=== PATIENT | female | born 1985 | race Caucasian/White ===

== ENCOUNTER → 2016-08-16 | Outpatient (CLI) | payer OTHER ==
[~2016-08-16] MED LIST: ALBUTEROL INHALATION; DESONIDECR TOPICAL; FLONASESPR NASAL; ORTHOTRICY PO; SINGULAI10 PO
[2016-08-16 13:13] LABS: BASO # 0.1 K/mm3 (0.0-0.2); BASO % 0.6 % (0.0-1.0); EOS # 0.4 K/mm3 (0.0-0.50); LYMPH # 2.2 K/mm3 (1.5-6.5); LYMPH % 24.3 % (24.0-44.0); MEAN CORPUSCULAR HEMOGLOBIN 31.7 pg (27.0-33.0); MEAN CORPUSCULAR HGB CONC 35.7 g/dl (32.0-36.5); MEAN CORPUSCULAR VOLUME 88.6 fl (80.0-96.0); MONO # 0.4 K/mm3 (0.0-0.8); MONO % 3.8 % (0.0-5.0); NEUTROPHILS # 6.1 K/mm3 (1.8-7.7); RED CELL DISTRIBUTION WIDTH 12.8 % (11.5-14.5); WHITE BLOOD COUNT 9.2 K/mm3 (4.0-10.0)
[2016-08-16 14:20] LABS: ALBUMIN/GLOBULIN RATIO 1.18 (1.00-1.93); ALKALINE PHOSPHATASE 112 U/L (45-117); ALT/SGPT 57 U/L (12-78); ANION GAP 10 MEQ/L (8-16); AST/SGOT 26 U/L (15-37); BILIRUBIN,TOTAL 0.4 MG/DL (0.2-1.0); BLOOD UREA NITROGEN 13 MG/DL (7-18); CALCIUM LEVEL 8.6 MG/DL (8.5-10.1); CARBON DIOXIDE LEVEL 24 MEQ/L (21-32); CHLORIDE LEVEL 109 MEQ/L (98-107); CHOLESTEROL LEVEL 223 MG/DL (<200); CREATININE FOR GFR 0.85 MG/DL (0.55-1.02); FREE T4 0.91 NG/DL (0.76-1.46); GLOMERULAR FILTRATION RATE > 60.0 (>60); GLUCOSE, FASTING 116 MG/DL (70-105); POTASSIUM SERUM 4.1 MEQ/L (3.5-5.1); SODIUM LEVEL 143 MEQ/L (136-145); TOTAL PROTEIN 7.4 GM/DL (6.4-8.2); TRIGLYCERIDES LEVEL 212 MG/DL (<150)
--- NOTE | 2016-08-17 14:56 | ECGEPIP ---
Stationary ECG Study [facility] Test Date: 2016-08-16 Pat Name: JULES MEJIA Department: OP Room: - Gender: F Radio Engineer: : 1985 Requested By: Jannie Pereira Order Number: [id number] Reading MD: David Juarez Measurements Intervals [place] Rate: 84 P: 30 CT: 137 QRS: 18 QRSD: 87 T: 29 QT: 373 QTc: 442 Interpretive Statements SINUS RHYTHM NONSPECIFIC T-WAVE ABNORMALITY NO PRIOR Electronically Signed On 08-17-2016 14:56:46 EST by David Juarez
== END ==
LOC: M LAB 12:29
PROVIDERS: ATTEND Nurse Practitioner Adult Health
DX: R07.9 Chest pain, unspecified (principal); E78.1 Pure hyperglyceridemia; E55.9 Vitamin D deficiency, unspecified; Z79.899 Other long term (current) drug therapy; J45.998 Other asthma; J44.9 Chronic obstructive pulmonary disease, unspecified

== ENCOUNTER → 2016-08-20 | Outpatient (CLI) | payer OTHER | LOC: M CARPUL 11:00 | PROVIDERS: ATTEND Nurse Practitioner Adult Health | DX: J44.9 Chronic obstructive pulmonary disease, unspecified (principal); R07.9 Chest pain, unspecified; J45.998 Other asthma ==

== ENCOUNTER → 2016-12-05 | Outpatient (CLI) | payer OTHER ==
[~2016-12-05] MED LIST changes: +GASTROGRAFIN SOLUTION 30ML (Q9963) As Ordered ONE; +ISOVUE-370 76% 100ML VIAL (Q9967) As Ordered ONE
--- NOTE | 2016-12-06 03:35 | REP ---
Clinical: Hiatal hernia. Abdominal pain. Technique: Axial contrast enhanced images of the abdomen using oral and 100 ml Isovue 370 intravenous contrast material with coronal and sagittal re-formations. Findings: A moderate hiatal hernia is identified with the gastric cardia and fundus extending superiorly through the esophageal hiatus by approximately 6 cm on current supine CT evaluation during non-Valsalva breath-hold. The remainder of the of the stomach and enteric system are normal. A normal terminal ileum and appendix are identified in the visualized right lower quadrant. Liver, spleen, pancreas, gallbladder, bilateral adrenal glands and kidneys are normal. No ascites. No free air. No visible intra-abdominal or retroperitoneal adenopathy or mass lesion. 1 cm fat containing periumbilical hernia noted. Vasculature is unremarkable. Surrounding musculoskeletal structures are intact. Impression: Moderate hiatal hernia as described above. Signed by Julio Pimentel MD 12/06/2016 03:27 A
== END ==
LOC: M RAD 12:35
PROVIDERS: ATTEND Surgery
DX: K44.9 Diaphragmatic hernia without obstruction or gangrene (principal)
CPT/HCPCS: 74160; Q9963; Q9967

== ENCOUNTER → 2016-12-15 | Outpatient (REF) | payer OTHER ==
[~2016-12-15] MED LIST changes: -GASTROGRAFIN SOLUTION 30ML (Q9963) As Ordered ONE; -ISOVUE-370 76% 100ML VIAL (Q9967) As Ordered ONE
== END ==
LOC: M LAB REF 19:08
PROVIDERS: ATTEND Physician Assistant Medical
DX: J02.9 Acute pharyngitis, unspecified (principal)

== ENCOUNTER → 2017-01-27 | Outpatient (CLI) | payer OTHER | LOC: M SMT 14:08 | PROVIDERS: ATTEND Advanced Practice Midwife | DX: N91.1 Secondary amenorrhea (principal) ==

== ENCOUNTER → 2017-02-13 | Outpatient (CLI) | payer OTHER ==
[~2017-02-13] MED LIST changes: +ALBU17IN INH; +ALBU17IN2 INH; +METF500T13 PO; +OMEP40CA2 PO; +RANI150T PO
[2017-02-13 22:08] LABS: FREE T4 0.99 NG/DL (0.76-1.46); LUTEINIZING HORMONE 11.7 mIU/mL; PROGESTERONE 0.5 NG/ML; PROLACTIN 10.5 NG/ML
[2017-02-13 22:09] LABS: ESTRADIOL 46.9 PG/ML; FOLLICLE STIMULATING HORMONE 6.2 mIU/mL
[2017-02-21 00:07] LABS: 17 HYDROXY PROGESTERONE 49 ng/dL (.)
== END ==
LOC: M SMT 14:28
PROVIDERS: ATTEND Advanced Practice Midwife
DX: N91.1 Secondary amenorrhea (principal)

== ENCOUNTER → 2017-03-03 | Outpatient (CLI) | payer OTHER | LOC: M SMT 11:40 | PROVIDERS: ATTEND Advanced Practice Midwife | DX: N91.1 Secondary amenorrhea (principal) ==

== ENCOUNTER → 2017-03-20 | Outpatient (REF) | payer OTHER ==
[2017-03-20 12:13] LABS: ALBUMIN 3.8 GM/DL (3.2-5.2); ALKALINE PHOSPHATASE 97 U/L (45-117); ALT/SGPT 90 U/L (12-78); ANION GAP 8 MEQ/L (8-16); AST/SGOT 41 U/L (15-37); BILIRUBIN,TOTAL 0.6 MG/DL (0.2-1.0); BLOOD UREA NITROGEN 13 MG/DL (7-18); CALCIUM LEVEL 9.3 MG/DL (8.5-10.1); CARBON DIOXIDE LEVEL 25 MEQ/L (21-32); CHLORIDE LEVEL 107 MEQ/L (98-107); CHOLESTEROL LEVEL 193 MG/DL (<200); CREATININE FOR GFR 0.86 MG/DL (0.55-1.02); GLOMERULAR FILTRATION RATE > 60.0 (>60); GLUCOSE, FASTING 95 MG/DL (70-105); POTASSIUM SERUM 4.4 MEQ/L (3.5-5.1); SODIUM LEVEL 140 MEQ/L (136-145); TOTAL PROTEIN 7.6 GM/DL (6.4-8.2); TRIGLYCERIDES LEVEL 434 MG/DL (<150)
[2017-03-20 12:25] LABS: BASO % 0.4 % (0.0-1.0); EOS # 0.4 K/mm3 (0.0-0.50); EOS % 3.9 % (0.0-3.0); LARGE UNSTAINED CELL # 0.1 K/mm3 (0.0-0.4); LARGE UNSTAINED CELL % 1.2 % (0.0-4.0); LYMPH % 31.5 % (24.0-44.0); MEAN CORPUSCULAR HGB CONC 35.3 g/dl (32.0-36.5); MEAN CORPUSCULAR VOLUME 90.6 fl (80.0-96.0); MONO # 0.4 K/mm3 (0.0-0.8); MONO % 4.8 % (0.0-5.0); NEUTROPHILS # 5.3 K/mm3 (1.8-7.7); NEUTROPHILS % 58.2 % (36.0-66.0); PLATELET COUNT, AUTOMATED 249 k/mm3 (150-450); RED CELL DISTRIBUTION WIDTH 13.5 % (11.5-14.5); WHITE BLOOD COUNT 9.1 K/mm3 (4.0-10.0)
== END ==
LOC: M SFHCPLAZ 10:02
PROVIDERS: ATTEND Nurse Practitioner Family
DX: Z00.00 Encounter for general adult medical examination without abnormal findings (principal); Z13.220 Encounter for screening for lipoid disorders; E66.9 Obesity, unspecified; K21.9 Gastro-esophageal reflux disease without esophagitis

== ENCOUNTER 2017-05-20 12:14 | Outpatient (CLI) | payer OTHER ==
[~2017-05-20] VITALS: Ht 149.9 cm; Wt 74.3 kg
[~2017-05-20 12:14] MED LIST changes: -OMEP40CA2 PO
[2017-05-20] MEDS ORDERED: NS 1,000 ML IV SCH (13:45)
[2017-05-20] MEDS ORDERED: LR 1,000 ML IV SCH (13:45)
[2017-05-20] MEDS ORDERED: OMEP40CA2 PO (13:57)
[2017-05-20] MEDS ORDERED: LIDOCAINE 2% INJ 100 MG/5 ML SDV (FOR ANES.) As Ordered ONE (14:25)
[2017-05-20] MEDS ORDERED: PROPOFOL 200 MG/20 ML VIAL As Ordered ONE (14:25)
--- NOTE | 2017-05-20 14:28 | ROOR ---
Patient Name: Pete Moreno Procedure Date: 05/20/2017 2:08 PM Date of : 1985 Age: 31 Room: [facility] Gender: Female Note Status: Finalized Procedure: Upper GI endoscopy Indications: Heartburn, Failure to respond to medical treatment, Chest pain (non cardiac) Providers: Mikie MUNROE MD Referring MD: Marilu Headley NP Requesting Provider: Medicines: Monitored Anesthesia Care Complications: No immediate complications. Procedure: Pre-Anesthesia Assessment: - The heart rate, respiratory rate, oxygen saturations, blood pressure, adequacy of pulmonary ventilation, and response to care were monitored throughout the procedure. The Endoscope was introduced through the mouth, and advanced to the second part of duodenum. The upper GI endoscopy was accomplished without difficulty. The patient tolerated the procedure well. Findings: The lower third of the esophagus was mildly tortuous. A medium-sized hiatal hernia was present. The exam was otherwise without abnormality. The STAFFORD capsule with delivery system was introduced through the mouth and advanced into the esophagus, such that the STAFFORD pH capsule was positioned 27 cm from the incisors, which was 6 cm proximal to the GE junction. Suction was applied to the well of the STAFFORD pH capsule to suck in the adjacent mucosa of the esophagus using the external vacuum pump. The STAFFORD pH capsule was then deployed by depressing the plunger on top of the handle to advance the locking pin into the mucosa, thereby attaching the capsule to the esophagus. The plunger was then rotated a quarter turn clockwise to release the capsule from the delivery system. The delivery system was then withdrawn. Endoscopy was utilized for probe placement and diagnostic evaluation. Impression: - Mildly tortuous esophagus with Z line regular at 33 cm from incisors. - Medium-sized hiatal hernia. - The examination was otherwise normal. - The STAFFORD pH capsule was positioned 27 cm from the incisors, which was 6 cm proximal to the GE junction. - No specimens collected. Recommendation: - Instructions: AVOID all reflux medications for next 48 hrs. (i.e. Avoid all the following for the next 48 hours: Prilosec/Omeprazole, Nexium, Prevacid/Lansoprazole, Dexilant, Zegerid/Omeprazole, Aciphex/Rabeprazole, Protonix/Pantoprazole, Zantac/Ranitidine, Pepcid/Famotidine, Tagamet). You may take tums, rolaids or maalox for severe symptoms, but try to limit this as well. Do not try to avoid your usual triggers for your symptoms for next 48 hrs. (If you have known "triggers" for your symptoms such as caffeine, fatty foods, laying down after meals etc, it is encouraged that you actually do try to produce your symptoms as much as possible over next 48 hrs.) - Telephone endoscopist for study results in 2 weeks. Mikie Munroe MD Mikie MUNROE MD 05/20/2017 2:28:19 PM This report has been signed electronically. Number of Addenda: 0 Note Initiated On: 05/20/2017 2:08 PM Estimated Blood Loss: Estimated blood loss: none.
[2017-05-20 15:05] VITALS: BP 145/95
== END 2017-05-20 15:05 | disposition home or self-care (01) ==
LOC: M OPP 12:14
PROVIDERS: ATTEND Internal Medicine Gastroenterology
DX: R12 Heartburn (principal); R10.13 Epigastric pain; R13.10 Dysphagia, unspecified; K44.9 Diaphragmatic hernia without obstruction or gangrene; Q39.9 Congenital malformation of esophagus, unspecified; R07.89 Other chest pain; J45.909 Unspecified asthma, uncomplicated; E66.9 Obesity, unspecified; E11.9 Type 2 diabetes mellitus without complications; K21.9 Gastro-esophageal reflux disease without esophagitis; Z88.5 Allergy status to narcotic agent; E28.2 Polycystic ovarian syndrome; K80.20 Calculus of gallbladder without cholecystitis without obstruction

== ENCOUNTER → 2017-06-18 | Outpatient (REF) | payer OTHER ==
[~2017-06-18] MED LIST changes: +OMEP40CA2 PO
== END ==
LOC: M LAB REF 16:34
PROVIDERS: ATTEND Physician Assistant
DX: N39.0 Urinary tract infection, site not specified (principal)

== ENCOUNTER 2017-07-10 08:36 | Emergency (ER) | payer OTHER ==
[~2017-07-10] VITALS: Ht 149.9 cm; Wt 74.1 kg
[2017-07-10] MEDS ORDERED: NS 1,000 ML IV ONE (09:15)
[2017-07-10] MEDS ORDERED: ONDANSETRON 4MG/2ML VIAL (J2405) IV ONE (09:15)
[2017-07-10] MEDS ORDERED: GASTROGRAFIN SOLUTION 30ML PO ONE (09:20)
[2017-07-10 09:38] LABS: BASO # 0.1 10^3/uL (0.0-0.2); BASO % 0.4 % (0.0-1.0); EOS # 0.2 10^3/uL (0.0-0.50); EOS % 1.6 % (0.0-3.0); IMMATURE GRANULOCYTE % 0.5 % (0-0); LYMPH % 15.4 % (24.0-44.0); MEAN CORPUSCULAR HEMOGLOBIN 30.6 pg (27.0-33.0); MEAN CORPUSCULAR HGB CONC 33.8 g/dl (32.0-36.5); MEAN CORPUSCULAR VOLUME 90.5 fl (80.0-96.0); MONO % 7.4 % (0.0-5.0); NEUTROPHILS # 9.5 10^3/uL (1.8-7.7); NEUTROPHILS % 74.7 % (36.0-66.0); PLATELET COUNT, AUTOMATED 379 10^3/uL (150-450); RED CELL DISTRIBUTION WIDTH 12.3 % (11.5-14.5); WHITE BLOOD COUNT 12.8 10^3/uL (4.0-10.0)
[2017-07-10] MEDS ORDERED: GASTROGRAFIN SOLUTION 30ML (Q9963) PO ONE (09:50)
[2017-07-10] MEDS ORDERED: ISOVUE-370 76% 100ML VIAL (Q9967) As Ordered ONE (09:52)
[2017-07-10] MEDS: MORPHINE 4 MG/ML 1ML SYRINGE IV PRN ×3 (09:56→12:01)
[2017-07-10 10:06] LABS: ALBUMIN 3.2 GM/DL (3.2-5.2); ALBUMIN/GLOBULIN RATIO 0.63 (1.00-1.93); ALKALINE PHOSPHATASE 116 U/L (45-117); ALT/SGPT 61 U/L (12-78); ANION GAP 6 MEQ/L (8-16); AST/SGOT 36 U/L (7-37); BILIRUBIN,DIRECT 0.1 MG/DL (0.0-0.2); BILIRUBIN,TOTAL 0.7 MG/DL (0.2-1.0); BLOOD UREA NITROGEN 11 MG/DL (7-18); CALCIUM LEVEL 8.8 MG/DL (8.5-10.1); CARBON DIOXIDE LEVEL 26 MEQ/L (21-32); CHLORIDE LEVEL 107 MEQ/L (98-107); CREATININE FOR GFR 0.93 MG/DL (0.55-1.02); GLOMERULAR FILTRATION RATE > 60.0 (>60); GLUCOSE, FASTING 118 MG/DL (70-105); POTASSIUM SERUM 4.4 MEQ/L (3.5-5.1); SODIUM LEVEL 139 MEQ/L (136-145); TOTAL PROTEIN 8.3 GM/DL (6.4-8.2)
--- NOTE | 2017-07-10 11:51 | REP ---
Clinical: Abdominal pain with recent hiatal hernia repair. Comparison: 12/05/2016. Technique: Axial contrast enhanced images from the lung bases to the pubic symphysis using oral (per protocol) and 100 ml Isovue 370 intravenous contrast material with coronal and sagittal re-formations. Findings: Lung bases demonstrate moderate consolidation/atelectasis involving the right middle lobe and right lower lobe along with trace left basilar atelectasis. Soft tissue prominence at the gastroesophageal junction along with inflammatory stranding surrounding the gastroesophageal junction through mid stomach, consistent with postoperative changes although infectious/inflammatory changes cannot be excluded. There is no evidence for drainable collection or abscess and no evidence for free air to suggest perforation. Anterior to the stomach and transverse colon are areas of moderate inflammatory stranding to the mesentery and omentum with some focal ovoid surrounding inflammatory fat stranding which may reflect postoperative changes although areas of omental/mesenteric infarction cannot be excluded (images 45 - 70). Liver, spleen, pancreas, bilateral adrenal glands and kidneys are normal. Cholelithiasis cannot be excluded without definite CT evidence for acute cholecystitis. There is no evidence for bowel obstruction. Pelvis demonstrates normal bladder and age-appropriate uterus/adnexa. Small amount of free fluid is identified in the posterior cul-de-sac which is nonspecific. No free air. No significant retroperitoneal adenopathy. No solitary mass lesion. Abdominal aorta and vasculature appears normal. Surrounding musculoskeletal structures are intact. Impression: 1. Right basilar atelectasis. 2. Changes involving the gastroesophageal junction along with stranding surrounding the stomach and fatty infiltration along the omentum and anterior mesentery as detailed above may reflect normal postoperative changes, but associated infectious/inflammatory changes cannot be excluded as well. No drainable collection/abscess, free air to suggest perforation, or bowel obstruction is appreciated. Signed by Julio Pimentel MD 07/10/2017 11:43 A
[2017-07-10 12:00] VITALS: BP 129/83
[2017-07-10] MEDS ORDERED: ZOFR4TAB3 PO (12:54)
[2017-07-10] MEDS ORDERED: PHEN1SUP6 PR (12:54)
[2017-07-10] MEDS ORDERED: SCOP1DIS TD (12:54)
[2017-07-10] MEDS ORDERED: dexameTHASONE 20 MG/5 ML VIAL (J1100) IV ONE (13:00)
== END 2017-07-10 13:18 | disposition home or self-care (01) ==
LOC: M ED 08:36
DX: G89.18 Other acute postprocedural pain (principal); R10.9 Unspecified abdominal pain; F17.200 Nicotine dependence, unspecified, uncomplicated; J30.2 Other seasonal allergic rhinitis; Z79.899 Other long term (current) drug therapy; Z79.84 Long term (current) use of oral hypoglycemic drugs; Z88.5 Allergy status to narcotic agent
CPT/HCPCS: 74177; 80048; 80076; 81001; 81025; 83605; 83690; 85025; 96374; 96375; 99284; J1100; J2405; Q9963; Q9967

== ENCOUNTER → 2017-07-14 | Outpatient (REF) | payer OTHER ==
[~2017-07-14] MED LIST changes: +PHEN1SUP6 PR; +SCOP1DIS TD; +ZOFR4TAB3 PO
[2017-07-14 18:32] LABS: BASO % 0.3 % (0.0-1.0); EOS # 0.5 10^3/uL (0.0-0.50); IMMATURE GRANULOCYTE % 0.5 % (0-0); LYMPH # 3.3 10^3/uL (1.5-6.5); LYMPH % 25.3 % (24.0-44.0); MEAN CORPUSCULAR HEMOGLOBIN 30.4 pg (27.0-33.0); MEAN CORPUSCULAR HGB CONC 33.4 g/dl (32.0-36.5); MEAN CORPUSCULAR VOLUME 90.9 fl (80.0-96.0); MONO # 1.1 10^3/uL (0.0-0.8); MONO % 8.4 % (0.0-5.0); NEUTROPHILS # 8.1 10^3/uL (1.8-7.7); NEUTROPHILS % 61.5 % (36.0-66.0); PLATELET COUNT, AUTOMATED 497 10^3/uL (150-450); RED CELL DISTRIBUTION WIDTH 12.3 % (11.5-14.5); WHITE BLOOD COUNT 13.1 10^3/uL (4.0-10.0)
[2017-07-14 18:44] LABS: ALBUMIN 3.1 GM/DL (3.2-5.2); ALBUMIN/GLOBULIN RATIO 0.76 (1.00-1.93); ALKALINE PHOSPHATASE 119 U/L (45-117); ALT/SGPT 57 U/L (12-78); ANION GAP 8 MEQ/L (8-16); AST/SGOT 24 U/L (7-37); BILIRUBIN,TOTAL 0.5 MG/DL (0.2-1.0); BLOOD UREA NITROGEN 6 MG/DL (7-18); CALCIUM LEVEL 8.4 MG/DL (8.5-10.1); CARBON DIOXIDE LEVEL 30 MEQ/L (21-32); CHLORIDE LEVEL 101 MEQ/L (98-107); CREATININE FOR GFR 0.75 MG/DL (0.55-1.02); GLOMERULAR FILTRATION RATE > 60.0 (>60); GLUCOSE, FASTING 78 MG/DL (70-105); POTASSIUM SERUM 4.3 MEQ/L (3.5-5.1); SODIUM LEVEL 139 MEQ/L (136-145); TOTAL PROTEIN 7.2 GM/DL (6.4-8.2)
== END ==
LOC: M SFHCPLAZ 14:51
PROVIDERS: ATTEND Nurse Practitioner Family
DX: R10.30 Lower abdominal pain, unspecified (principal)

== ENCOUNTER 2017-07-15 15:54 | Emergency (ER) | payer OTHER ==
[~2017-07-15] VITALS: Ht 149.9 cm; Wt 73.6 kg
[2017-07-15 15:54] VITALS: BP 132/85
== END 2017-07-15 16:47 | disposition left against medical advice (07) ==
LOC: M ED 15:54
DX: Z53.21 Procedure and treatment not carried out due to patient leaving prior to being seen by health care provider (principal)

== ENCOUNTER → 2018-02-18 | Outpatient (REF) | payer OTHER | LOC: M LAB REF 13:05 | DX: R35.0 Frequency of micturition (principal) | CPT/HCPCS: 87086 ==

== ENCOUNTER → 2018-05-15 | Outpatient (REF) | payer OTHER ==
[2018-05-15 14:41] LABS: CHLAMYDIA DNA AMPLIFICATION NEGATIVE (NEGATIVE); GC DNA AMPLIFICATION NEGATIVE (NEGATIVE)
== END ==
LOC: M LAB REF 12:54
DX: N76.0 Acute vaginitis (principal)

== ENCOUNTER 2018-06-22 11:33 | Day surgery (SDC) | payer OTHER ==
[~2018-06-22 11:33] MED LIST changes: -ALBU17IN INH; -ALBU17IN2 INH; -ALBUTEROL INHALATION; -DESONIDECR TOPICAL; -FLONASESPR NASAL; +LIDOCAINE 2% INJ 100 MG/5 ML SDV (FOR ANES.) As Ordered; -METF500T13 PO; -OMEP40CA2 PO; -ORTHOTRICY PO; -PHEN1SUP6 PR; +PROPOFOL 200 MG/20 ML VIAL As Ordered; -RANI150T PO; -SCOP1DIS TD; -SINGULAI10 PO; -ZOFR4TAB3 PO
[2018-06-22] MEDS ORDERED: NS 1,000 ML IV (12:00)
[2018-06-22] MEDS ORDERED: MIDAZOLAM INJ 5 MG/ML VIAL (J2250) As Ordered (16:39)
[2018-06-22] MEDS ORDERED: fentaNYL 100 MCG/2 ML INJECTION (J3010) As Ordered (16:43)
[2018-06-22] MEDS ORDERED: PROPOFOL 200 MG/20 ML VIAL As Ordered ×2 (17:22)
== END 2018-06-22 13:36 | disposition home or self-care (01) ==
LOC: M OPP 11:33
DX: Z12.11 Encounter for screening for malignant neoplasm of colon (principal); Z86.010 Personal history of colon polyps; R12 Heartburn; K21.9 Gastro-esophageal reflux disease without esophagitis; R11.2 Nausea with vomiting, unspecified; J45.909 Unspecified asthma, uncomplicated; E28.2 Polycystic ovarian syndrome; L30.9 Dermatitis, unspecified; F17.220 Nicotine dependence, chewing tobacco, uncomplicated; F17.210 Nicotine dependence, cigarettes, uncomplicated; Z79.84 Long term (current) use of oral hypoglycemic drugs; Z79.899 Other long term (current) drug therapy; Z91.048 Other nonmedicinal substance allergy status; Z88.5 Allergy status to narcotic agent; Z98.890 Other specified postprocedural states; Z80.3 Family history of malignant neoplasm of breast; Z82.49 Family history of ischemic heart disease and other diseases of the circulatory system
CPT/HCPCS: G0105

== ENCOUNTER → 2018-06-24 | Outpatient (CLI) | payer OTHER ==
[2018-06-24 13:47] LABS: BASO # 0.1 10^3/uL (0.0-0.2); BASO % 0.6 % (0.0-1.0); EOS # 0.4 10^3/uL (0.0-0.50); EOS % 4.7 % (0.0-3.0); HEMATOCRIT 49.2 % (36.0-47.0); HEMOGLOBIN 16.6 g/dl (12.0-15.5); IMMATURE GRANULOCYTE % 0.3 % (0-3.0); LYMPH % 32.2 % (24.0-44.0); MEAN CORPUSCULAR HGB CONC 33.7 g/dl (32.0-36.5); MONO # 0.5 10^3/uL (0.0-0.8); MONO % 5.5 % (0.0-5.0); NEUTROPHILS # 5.3 10^3/uL (1.8-7.7); NEUTROPHILS % 56.7 % (36.0-66.0); RED BLOOD COUNT 5.35 10^6/uL (4.00-5.40); WHITE BLOOD COUNT 9.4 10^3/uL (4.0-10.0)
[2018-06-24 13:48] LABS: ESTIMATED AVERAGE GLUCOSE 126 MG/DL (60-110)
[2018-06-24 13:50] LABS: ALBUMIN 3.9 GM/DL (3.2-5.2); ALBUMIN/GLOBULIN RATIO 0.98 (1.00-1.93); ALKALINE PHOSPHATASE 101 U/L (45-117); ALT/SGPT 131 U/L (12-78); ANION GAP 10 MEQ/L (8-16); AST/SGOT 64 U/L (7-37); BILIRUBIN,TOTAL 0.9 MG/DL (0.2-1.0); BLOOD UREA NITROGEN 16 MG/DL (7-18); CALCIUM LEVEL 9.3 MG/DL (8.5-10.1); CARBON DIOXIDE LEVEL 26 MEQ/L (21-32); CHLORIDE LEVEL 105 MEQ/L (98-107); CHOLESTEROL LEVEL 237 MG/DL (<200); CREATININE FOR GFR 0.99 MG/DL (0.55-1.30); GLOMERULAR FILTRATION RATE > 60.0 (>60); GLUCOSE, FASTING 97 MG/DL (70-100); HDL CHOLESTEROL 34 MG/DL (>40); LDL CHOLESTEROL 139 MG/DL (<100); NON-HDL-C 203 MG/DL; POTASSIUM SERUM 3.9 MEQ/L (3.5-5.1); SODIUM LEVEL 141 MEQ/L (136-145); TOTAL PROTEIN 7.9 GM/DL (6.4-8.2); TRIGLYCERIDES LEVEL 319 MG/DL (<150)
== END ==
LOC: M SMT 09:05
DX: E28.2 Polycystic ovarian syndrome (principal)
CPT/HCPCS: 80053

== ENCOUNTER → 2018-07-20 | Outpatient (REF) | payer OTHER ==
[2018-07-24 14:13] LABS: HPV HYBRID CAPTURE II Negative (Negative)
== END ==
LOC: M SFHCWAGY 15:09
DX: Z12.4 Encounter for screening for malignant neoplasm of cervix (principal)
CPT/HCPCS: 88142

== ENCOUNTER → 2018-07-24 | Outpatient (CLI) | payer OTHER ==
[~2018-07-24] MED LIST changes: +ALBU17IN INH; +ALBU17IN2 INH; +ALBUTEROL INHALATION; +DESONIDECR TOPICAL; +E-Z-GAS II EFFERVESCENT PACKET (SODIUM BICARB./CITRIC ACID/SIMETHICONE) As Ordered ONE; +E-Z-HD 98% w/w 340GM SUSP BTL As Ordered ONE; +E-Z-PAQUE 96% w/w SUSP 176GM BTL As Ordered ONE; +FLONASESPR NASAL; -LIDOCAINE 2% INJ 100 MG/5 ML SDV (FOR ANES.) As Ordered; +METF500T13 PO; +METF750T PO; +OMEP40CA2 PO; +ORTHOTRICY PO; +PHEN1SUP6 PR; -PROPOFOL 200 MG/20 ML VIAL As Ordered; +RANI150T PO; +SCOP1DIS TD; +SINGULAI10 PO; +ZOFR4TAB14 PO
--- NOTE | 2018-07-28 15:05 | REP ---
Upper GI air contrast The procedure was performed under the direct supervision of Dr. Brandon. The images were reviewed with Dr. Brandon The truant officer film shows no organomegaly or pathological masses. The intestinal gas pattern is non-specific. There is a surgical clips seen in the left upper quadrant. Liquid barium and gas producing crystals were given in the erect position as well as liquid barium in the prone oblique position in order to perform a double contrast upper GI examination. The oral and pharyngeal stages of deglutition are unremarkable. Esophageal transport is prompt and efficient and there is no esophagitis, stricture or mucosal ring. The patient is status post Neal fundoplication. There is a hiatal hernia. There is gastroesophageal reflux demonstrated to above the level of the cassandra. The stomach lane are normally outlined . The rugal folds are smooth and regular. There is no gastritis neoplasm or ulcer disease. The duodenal lane are normally outlined . The mucosal folds are smooth and regular. There is no duodenitis pancreatitis peptic ulcer disease or neoplasm. The visualized portion of the proximal small bowel appears normal in course and caliber. Impression: The patient is status post Neal fundoplication, however, there is a hiatal hernia. There is gastroesophageal reflux demonstrated to above the level of the cassandra. 1 minute of fluoro time was utilized for this procedure. Reviewed by JOSE Hardy 07/24/2018 05:01 P Electronically Signed by Jeovany Brandon MD 07/28/2018 02:57 P
== END ==
LOC: M RAD 09:26
PROVIDERS: ATTEND Internal Medicine Gastroenterology
DX: R11.2 Nausea with vomiting, unspecified (principal)

== ENCOUNTER → 2018-08-27 | Outpatient (CLI) | payer OTHER ==
[~2018-08-27] MED LIST changes: +CEFD1CAP8; -E-Z-GAS II EFFERVESCENT PACKET (SODIUM BICARB./CITRIC ACID/SIMETHICONE) As Ordered ONE; -E-Z-HD 98% w/w 340GM SUSP BTL As Ordered ONE; -E-Z-PAQUE 96% w/w SUSP 176GM BTL As Ordered ONE; +NYST10CR
--- NOTE | 2018-08-27 08:50 | REP ---
RIGHT UPPER QUADRANT SONOGRAPHY: HISTORY: 32-year-old female with nausea vomiting. Elevated liver enzymes, generalized abdominal pain and right upper quadrant pain. History of gallstones. Comparison CT study July 10, 2017. Comparison sonography August 29, 2016. SONOGRAPHIC FINDINGS: Scanning through the right upper quadrant of the abdomen demonstrates a small contracted gallstone around innumerable shadowing calculi. There is tenderness to scanning over the gallbladder. Common bile duct is normal measuring 0.3 cm in greatest diameter. There is evidence of moderate fatty infiltration of the liver. No focal liver lesion is seen. Limited views of the pancreas show no abnormality. There is no evidence of ascites or right renal abnormality. The right kidney measures 9.5 x 4.6 x 4.1 cm. IMPRESSION: Cholelithiasis. Tenderness to scanning over the gallbladder. Gallbladder is contracted and filled with stones. There is evidence of fatty infiltration of the liver. Electronically Signed by Desmond Garcia MD 08/27/2018 08:59 A
== END ==
LOC: M RAD 07:56
PROVIDERS: ATTEND Physician Assistant Medical
DX: R11.2 Nausea with vomiting, unspecified (principal); R10.84 Generalized abdominal pain; K80.20 Calculus of gallbladder without cholecystitis without obstruction; K76.0 Fatty (change of) liver, not elsewhere classified

== ENCOUNTER 2018-08-28 17:11 | Emergency (ER) | payer OTHER ==
[~2018-08-28] VITALS: Ht 149.9 cm; Wt 77.7 kg
[2018-08-28 17:11] VITALS: BP 141/92
[~2018-08-28 17:11] MED LIST changes: -CEFD1CAP8; -NYST10CR
[2018-08-28] MEDS ORDERED: CEFD1CAP8 (17:20)
[2018-08-28] MEDS ORDERED: NYST10CR (17:20)
[2018-08-28] MEDS ORDERED: KETOROLAC 30 MG/ML VIAL (J1885) IV ONE (18:00)
[2018-08-28] MEDS ORDERED: METOCLOPRAMIDE INJ 10MG/2ML VIAL (J2765) IV ONE (18:00)
[2018-08-28] MEDS ORDERED: NS 1,000 ML IV ONE (18:00)
[2018-08-28] MEDS ORDERED: GI COCKTAIL 50ML BTL(HYOSCYAMINE/MAALOX/LIDOCAINE VISCOUS)(1:3:1) PO ONE (18:00)
[2018-08-28 19:07] LABS: BASO % 0.2 % (0.0-1.0); EOS # 0.1 10^3/uL (0.0-0.50); EOS % 1.2 % (0.0-3.0); HEMOGLOBIN 16.8 g/dl (12.0-15.5); LYMPH # 1.9 10^3/uL (1.5-4.5); LYMPH % 20.9 % (24.0-44.0); MEAN CORPUSCULAR HEMOGLOBIN 31.2 pg (27.0-33.0); MEAN CORPUSCULAR HGB CONC 35.7 g/dl (32.0-36.5); MEAN CORPUSCULAR VOLUME 87.4 fl (80.0-96.0); MONO # 0.5 10^3/uL (0.0-0.8); MONO % 5.6 % (0.0-5.0); NEUTROPHILS # 6.5 10^3/uL (1.8-7.7); NEUTROPHILS % 71.6 % (36.0-66.0); PLATELET COUNT, AUTOMATED 232 10^3/uL (150-450); RED BLOOD COUNT 5.38 10^6/uL (4.00-5.40); WHITE BLOOD COUNT 9.1 10^3/uL (4.0-10.0)
[2018-08-28 19:47] LABS: BLOOD UREA NITROGEN 13 MG/DL (7-18); CARBON DIOXIDE LEVEL 23 MEQ/L (21-32); CHLORIDE LEVEL 107 MEQ/L (98-107); CREATININE FOR GFR 1.01 MG/DL (0.55-1.30); GLOMERULAR FILTRATION RATE > 60.0 (>60); GLUCOSE, FASTING 86 MG/DL (70-100); SODIUM LEVEL 139 MEQ/L (136-145)
[2018-08-28 19:48] LABS: ALBUMIN 4.1 GM/DL (3.2-5.2); ALT/SGPT 114 U/L (12-78); BILIRUBIN,DIRECT 0.2 MG/DL (0.0-0.2); BILIRUBIN,TOTAL 1.2 MG/DL (0.2-1.0); LIPASE 128 U/L (73-393); TOTAL PROTEIN 7.9 GM/DL (6.4-8.2)
[2018-08-28] MEDS ORDERED: CIPROFLOXACIN 500 MG TAB PO ONE (20:15)
== END 2018-08-28 20:23 | disposition left against medical advice (07) ==
LOC: M ED 17:11
DX: K80.20 Calculus of gallbladder without cholecystitis without obstruction (principal); E28.2 Polycystic ovarian syndrome; K58.9 Irritable bowel syndrome, unspecified; K21.9 Gastro-esophageal reflux disease without esophagitis; Z79.899 Other long term (current) drug therapy; Z88.5 Allergy status to narcotic agent; J30.2 Other seasonal allergic rhinitis; F17.210 Nicotine dependence, cigarettes, uncomplicated
CPT/HCPCS: 80048; 80076; 81001; 83690; 85025; 96361; 96374; 96375; 99283; J1885; J2765

== ENCOUNTER → 2018-09-02 | Outpatient (CLI) | payer OTHER ==
[~2018-09-02] MED LIST changes: +CEFD1CAP8; +NYST10CR
[2018-09-02 13:35] LABS: BASO % 0.4 % (0.0-1.0); EOS # 0.4 10^3/uL (0.0-0.50); EOS % 3.7 % (0.0-3.0); HEMATOCRIT 45.1 % (36.0-47.0); HEMOGLOBIN 15.5 g/dl (12.0-15.5); LYMPH # 3.4 10^3/uL (1.5-4.5); LYMPH % 35.3 % (24.0-44.0); MEAN CORPUSCULAR HEMOGLOBIN 31.1 pg (27.0-33.0); MEAN CORPUSCULAR HGB CONC 34.4 g/dl (32.0-36.5); MEAN CORPUSCULAR VOLUME 90.6 fl (80.0-96.0); MONO # 0.7 10^3/uL (0.0-0.8); MONO % 6.7 % (0.0-5.0); NEUTROPHILS # 5.2 10^3/uL (1.8-7.7); NEUTROPHILS % 53.5 % (36.0-66.0); PLATELET COUNT, AUTOMATED 287 10^3/uL (150-450); RED BLOOD COUNT 4.98 10^6/uL (4.00-5.40); WHITE BLOOD COUNT 9.7 10^3/uL (4.0-10.0)
[2018-09-02 13:46] LABS: ALBUMIN 3.5 GM/DL (3.2-5.2); BILIRUBIN,DIRECT 0.1 MG/DL (0.0-0.2); BILIRUBIN,TOTAL 0.7 MG/DL (0.2-1.0); TOTAL PROTEIN 7.1 GM/DL (6.4-8.2)
== END ==
LOC: M SMT 10:55
PROVIDERS: ATTEND Physician Assistant Medical
DX: R94.5 Abnormal results of liver function studies (principal); R10.11 Right upper quadrant pain

== ENCOUNTER → 2018-09-30 | Outpatient (REF) | payer OTHER ==
[2018-09-30 19:59] LABS: CHLAMYDIA DNA AMPLIFICATION NEGATIVE (NEGATIVE); GC DNA AMPLIFICATION NEGATIVE (NEGATIVE)
== END ==
LOC: M SFHCWAGY 16:49
PROVIDERS: ATTEND Nurse Practitioner Family
DX: Z11.3 Encounter for screening for infections with a predominantly sexual mode of transmission (principal)

== ENCOUNTER → 2018-10-09 | Outpatient (CLI) | payer MEDICAID | LOC: M OUTALCOH 07:53 | PROVIDERS: ATTEND Psychiatry & Neurology Psychiatry | DX: Z03.89 Encounter for observation for other suspected diseases and conditions ruled out (principal) ==

== ENCOUNTER 2018-10-19 15:49 | Outpatient (RCR) | payer MEDICAID | END 2018-11-08 | LOC: M OUTALCOH 15:49 | PROVIDERS: ATTEND Psychiatry & Neurology Psychiatry | DX: Z03.89 Encounter for observation for other suspected diseases and conditions ruled out (principal) ==

== ENCOUNTER 2018-12-10 08:25 | Day surgery (SDC) | payer OTHER ==
[~2018-12-10] VITALS: Ht 149.9 cm; Wt 75.7 kg
[~2018-12-10 08:25] MED LIST changes: +LR 1,000 ML IV ONE; +WELLTAB38 PO
[2018-12-10 08:47] LABS: URINE PREG TEST NEGATIVE (NEGATIVE)
[2018-12-10] MEDS ORDERED: fentaNYL 250 MCG/5 ML INJECTION (J3010) As Ordered ONE (09:38)
[2018-12-10] MEDS ORDERED: MIDAZOLAM INJ 2 MG/2 ML VIAL (J2250) As Ordered ONE (09:39)
[2018-12-10] MEDS ORDERED: PROPOFOL 200 MG/20 ML VIAL As Ordered ONE (09:39)
[2018-12-10] MEDS ORDERED: dexameTHASONE 4 MG/ML 1ML VIAL (J1100) As Ordered ONE (09:39)
[2018-12-10] MEDS ORDERED: ROCURONIUM BROMIDE 50 MG/5 ML VIAL As Ordered ONE (09:39)
[2018-12-10] MEDS ORDERED: LIDOCAINE 2% INJ 100 MG/5 ML SDV (FOR ANES.) As Ordered ONE (09:39)
[2018-12-10] MEDS ORDERED: PHENYLephrine HCL 500 MCG/5 ML (100MCG/ML) SYRINGE (J2370) As Ordered ONE (11:06)
[2018-12-10] MEDS ORDERED: GLYCOPYRROLATE INJ 0.2 MG/ML 2 ML VIAL As Ordered ONE ×2 (11:08→11:39)
[2018-12-10] MEDS ORDERED: ePHEDrine SULFATE 25 MG/5 ML(5MG/ML) SYRINGE As Ordered ONE (11:15)
[2018-12-10] MEDS ORDERED: NEOSTIGMINE 10 MG/10 ML VIAL (J2710) As Ordered ONE (11:39)
[2018-12-10] MEDS ORDERED: HYDROmorphone HCL 2 MG/ML 1ML VIAL (J1170) As Ordered ONE (11:39)
[2018-12-10] MEDS ORDERED: ONDANSETRON 4MG/2ML VIAL (J2405) As Ordered ONE ×2 (11:52→13:27)
[2018-12-10] MEDS ORDERED: KETOROLAC 60 MG/2 ML VIAL (J1885) As Ordered ONE (11:53)
[2018-12-10] MEDS ORDERED: BUPIVACAINE HCL 0.25% 30 ML VIAL As Ordered ONE (13:21)
[2018-12-10] MEDS ORDERED: PERCOCET 5MG/325MG TAB As Ordered ONE (13:40)
[2018-12-10] MEDS ORDERED: fentaNYL 100 MCG/2 ML INJECTION (J3010) IV PRN (13:45)
[2018-12-10] MEDS ORDERED: ACETAMINOPHEN TAB 650MG DOSE (2X325MG) PO PRN (13:45)
[2018-12-10] MEDS ORDERED: HYDROMORPHONE HCL 0.5 MG/ 0.5 ML SYRINGE (J1170 PER 1) IV PRN (13:45)
[2018-12-10] MEDS ORDERED: ONDANSETRON 4MG/2ML VIAL (J2405) IV PRN (13:45)
[2018-12-10] MEDS ORDERED: PERCOCET 5MG/325MG TAB PO PRN (13:45)
[2018-12-10] MEDS ORDERED: METOCLOPRAMIDE INJ 10MG/2ML VIAL (J2765) IV PRN (13:45)
[2018-12-10] MEDS ORDERED: PERCOCET PO (13:59)
[2018-12-10 14:14] VITALS: BP 135/84
--- NOTE | 2018-12-11 08:50 | RO ---
DATE OF PROCEDURE: 12/10/2018 PREOPERATIVE DIAGNOSIS: Symptomatic gallstones. POSTOPERATIVE DIAGNOSIS: Symptomatic gallstones and abdominal adhesions. PROCEDURE PERFORMED: Robotic-assisted laparoscopic cholecystectomy with lysis of adhesions. SURGEON: Dr. Granger CREDIT UNION FIELD EXAMINER: AGNES Hua. Nurse Warren was instrumental in assisting with the procedure both in placing the trocars adjusting robotic arms changing instruments and closing. ANESTHESIA: General. INDICATIONS FOR PROCEDURE: The patient is a 33-year-old woman with a history of some upper abdominal discomfort. She was found have cholelithiasis with now for a robotic-assisted laparoscopic cholecystectomy. OPERATIVE PROCEDURE: The patient was placed supine on the operating table. She was placed under general endotracheal anesthesia. The patient's abdomen was prepped and draped in a sterile fashion. The initial trocar was placed in the patient's left upper quadrant. 0.25% Marcaine was infiltrated in the small incision was made. A Veress needle was inserted and after positive hanging drop test the abdomen was insufflated with carbon dioxide gas. A 8 mm robotic port was then placed over the scope and advanced through the abdominal wall without difficulty. Initial examination showed fairly extensive adhesions of the omentum to the anterior abdominal wall along the midline and into the right upper quadrant, particularly surrounding the area of the falciform ligament. A second 8 mm trocar was placed just above the umbilicus. The patient was tilted somewhat to a reverse Trendelenburg position. An endoscopic scissors were used to divide filmy adhesions to the anterior abdominal wall. Some of the adhesions were left along the falciform ligament. A third and fourth trocar were placed in the right upper quadrant. The liver appeared normal other than a few adhesions on the left lobe. The small and large bowel appeared normal at least that portion that was seen. The gallbladder was noted to be slightly thickened and the fundus was seen below the edge of the liver. The [employer] Jemal XI robot was then brought into position and docked to the camera port from the right. Targeting of the right upper quadrant took place. The additional arms were then docked. A grasper was placed in the lateral right upper quadrant. A bipolar cautery was placed in the medial right upper quadrant and a hook was placed in the left upper quadrant. I then moved to the control console and proceeded with the robotic portion of the procedure. The adhesions of the omentum to the anterior abdominal wall were completely divided and taken down using the robotic dissection. Attention was then turned to the gallbladder. The fundus was grasped and gallbladder was elevated. There were some adhesions of the surrounding omentum to the gallbladder and these were divided using the cautery. Dissection proceeded down to the neck of the gallbladder. The gallbladder was regrasped and elevated further. Dissection at the gallbladder neck was performed with the hook dividing the peritoneum on both sides of gallbladder. With further dissection a small lymph node was identified. Small amount of bleeding occurred from this and this was controlled with cautery. The artery and cystic duct were then both clearly identified. The patient had been injected with indocyanine green preoperatively in anticipation of use of the [employer] system and this did identify the cystic duct by Green coloration. The artery was initially doubly clipped and divided. The cystic duct was then completely cleared of surrounding tissue and doubly clipped and divided. The gallbladder was then dissected free from the gallbladder bed using cautery dissection. A very small hole was created in the gallbladder near the fundus during dissection. Once the gallbladder had been completely freed from the liver. It was placed in an endoscopic specimen retrieval bag and this was sent off to the left side of the abdomen. The right upper quadrant was irrigated and inspected. There was no evidence of any bleeding or bile leak. The robot was then undocked and the patient was returned to a flat position. The Endopouch was grasped through the supraumbilical port site and the gallbladder was delivered through the abdominal wall. It was necessary to extend the fascial incision slightly in order for the gallbladder to pass. Multiple small stones were palpable within the gallbladder. This was sent for permanent pathology. The fascia was closed with a 1-0 Vicryl. Skin incisions were all closed with buried 5-0 Vicryl and Steri-Strips. Light dressings were applied. The patient tolerated the procedure well without apparent complication. She was awakened in the operating room, extubated and moved to the recovery room in stable condition.
== END 2018-12-10 14:43 | disposition home or self-care (01) ==
LOC: M SDC 08:25
PROVIDERS: ATTEND Surgery
DX: K80.20 Calculus of gallbladder without cholecystitis without obstruction (principal); N73.6 Female pelvic peritoneal adhesions (postinfective); E28.2 Polycystic ovarian syndrome; K21.9 Gastro-esophageal reflux disease without esophagitis; J45.909 Unspecified asthma, uncomplicated; F17.210 Nicotine dependence, cigarettes, uncomplicated; Z79.899 Other long term (current) drug therapy; Z88.5 Allergy status to narcotic agent; Z79.51 Long term (current) use of inhaled steroids
CPT/HCPCS: 47562; 49329; 84703; 88304; J1100; J1170; J1885; J2250; J2370; J2405; J2710; J3010

== ENCOUNTER → 2019-02-24 | Outpatient (REF) | payer OTHER ==
[~2019-02-24] MED LIST changes: -LR 1,000 ML IV ONE; +PERCOCET PO
[2019-02-24 15:39] LABS: CHLAMYDIA DNA AMPLIFICATION NEGATIVE (NEGATIVE); GC DNA AMPLIFICATION NEGATIVE (NEGATIVE)
== END ==
LOC: M LAB REF 12:38
PROVIDERS: ATTEND Physician Assistant Medical
DX: N89.8 Other specified noninflammatory disorders of vagina (principal)

== ENCOUNTER → 2019-09-02 | Outpatient (REF) | payer OTHER ==
[~2019-09-02] MED LIST changes: +CIPRODEX OTIC; +DESO1TAB5 PO; +FEXO60CA PO; -METF750T PO; +METF750T36 PO; -OMEP40CA2 PO; +OMEP40CA97 PO; +PRED20TA PO; +PROV108A INH
[2019-09-02 12:52] LABS: ALBUMIN 3.3 GM/DL (3.2-5.2); ALT/SGPT 26 U/L (12-78); BILIRUBIN,TOTAL 0.6 MG/DL (0.2-1.0); BLOOD UREA NITROGEN 13 MG/DL (7-18); CALCIUM LEVEL 8.8 MG/DL (8.5-10.1); CARBON DIOXIDE LEVEL 23 MEQ/L (21-32); CHLORIDE LEVEL 105 MEQ/L (98-107); CHOLESTEROL LEVEL 224 MG/DL (<200); CHOLESTEROL RISK RATIO 5.894 (<5); CREATININE FOR GFR 0.95 MG/DL (0.55-1.30); GLOMERULAR FILTRATION RATE > 60.0 (>60); GLUCOSE, FASTING 124 MG/DL (70-100); HDL CHOLESTEROL 38 MG/DL (>40); NON-HDL-C 186 MG/DL; POTASSIUM SERUM 3.8 MEQ/L (3.5-5.1); SODIUM LEVEL 138 MEQ/L (136-145); TRIGLYCERIDES LEVEL 514 MG/DL (<150)
[2019-09-02 13:28] LABS: HEMOGLOBIN A1c 6.3 %
== END ==
LOC: M LABDRAW1 11:29
PROVIDERS: ATTEND Physician Assistant
DX: E11.9 Type 2 diabetes mellitus without complications (principal)

== ENCOUNTER 2019-09-05 04:46 | Emergency (ER) | payer OTHER ==
[~2019-09-05] VITALS: Ht 149.9 cm; Wt 72.1 kg
[~2019-09-05 04:46] MED LIST changes: -CIPRODEX OTIC; -DESO1TAB5 PO; -FEXO60CA PO; -PRED20TA PO
[2019-09-05] MEDS ORDERED: FEXO60CA PO (04:59)
[2019-09-05] MEDS ORDERED: DESO1TAB5 PO (04:59)
[2019-09-05] MEDS ORDERED: PRED20TA PO (04:59)
--- NOTE | 2019-09-05 05:53 | REPVR ---
PROCEDURE INFORMATION: Exam: CT Head Without Contrast Exam date and time: 09/05/2019 5:29 AM Age: 33 years old Clinical indication: Injury or trauma; Fall; Initial encounter; Concussion / head injury; Consciousness not specified; Additional info: Fall head injury TECHNIQUE: Imaging protocol: Computed tomography of the head without contrast. Radiation optimization: All CT scans at this facility use at least one of these dose optimization techniques: automated exposure control; mA and/or kV adjustment per patient size (includes targeted exams where dose is matched to clinical indication); or iterative reconstruction. COMPARISON: No relevant prior studies available. FINDINGS: Brain: Normal. No hemorrhage. Unremarkable white matter. No mass effect. Ventricles: Normal. No ventriculomegaly. Bones/joints: Unremarkable. No acute fracture. Sinuses: Visualized sinuses are unremarkable. No fluid levels. Mastoid air cells: Visualized mastoid air cells are well aerated. Soft tissues: Unremarkable. IMPRESSION: No acute intracranial abnormality. Electronically signed by: Mikie Coates On 09/05/2019 05:53:17 AM
--- NOTE | 2019-09-05 05:55 | REPVR ---
PROCEDURE INFORMATION: Exam: CT Maxillofacial Without Contrast Exam date and time: 09/05/2019 5:29 AM Age: 33 years old Clinical indication: Injury or trauma; Fall; Initial encounter; Blunt trauma (contusions or hematomas); Jaw; Not specified; Injury details: Fell on ice hit side of head bleeding from left ear; Additional info: Fall head injury TECHNIQUE: Imaging protocol: Computed tomography images of the face without contrast. Radiation optimization: All CT scans at this facility use at least one of these dose optimization techniques: automated exposure control; mA and/or kV adjustment per patient size (includes targeted exams where dose is matched to clinical indication); or iterative reconstruction. COMPARISON: No relevant prior studies available. FINDINGS: Orbits: Orbits are normal. Globes are unremarkable. Auditory system: Left external auditory canal soft tissue thickening, correlate for trauma or external otitis. Sinuses: Small right maxillary sinus mucous retention cyst. Bones/joints: Left bony external auditory canal possible tiny fracture, versus some cartilaginous calcifications. Soft tissues: Unremarkable. IMPRESSION: 1. Left bony external auditory canal possible tiny fracture, versus some cartilaginous calcifications. 2. Left external auditory canal soft tissue thickening, correlate for trauma or external otitis. Electronically signed by: Mikie Coates On 09/05/2019 05:55:17 AM
--- NOTE | 2019-09-05 05:59 | REPVR ---
PROCEDURE INFORMATION: Exam: CT Cervical Spine Without Contrast Exam date and time: 09/05/2019 5:49 AM Age: 33 years old Clinical indication: Injury or trauma; Fall; Initial encounter; Blunt trauma; Additional info: Fall head injury TECHNIQUE: Imaging protocol: Computed tomography images of the cervical spine without contrast. Radiation optimization: All CT scans at this facility use at least one of these dose optimization techniques: automated exposure control; mA and/or kV adjustment per patient size (includes targeted exams where dose is matched to clinical indication); or iterative reconstruction. COMPARISON: No relevant prior studies available. FINDINGS: Vertebrae: Normal spinal curvature, vertebral body heights, and alignment. No spinal fracture or acute subluxation. Left C5 vertebral body and pedicle bone island. Discs/Spinal canal/Neural foramina: Diffuse degenerative disc space loss with degenerative disc osteophyte complexes causes up to mild spinal and foraminal stenosis greatest at C4-C7. Soft tissues: Unremarkable. Lungs: Lung apices are normal. IMPRESSION: No acute vertebral fracture/subluxation. Electronically signed by: Mikie Coates On 09/05/2019 05:59:06 AM
[2019-09-05] MEDS ORDERED: CIPRODEX OTIC (07:14)
[2019-09-05 07:35] VITALS: BP 132/98
== END 2019-09-05 07:40 | disposition home or self-care (01) ==
LOC: M ED 04:46
DX: S09.91XA Unspecified injury of ear, initial encounter (principal); H92.22 Otorrhagia, left ear; H91.92 Unspecified hearing loss, left ear; W00.0XXA Fall on same level due to ice and snow, initial encounter; Y92.9 Unspecified place or not applicable; E28.2 Polycystic ovarian syndrome; K21.9 Gastro-esophageal reflux disease without esophagitis; F17.210 Nicotine dependence, cigarettes, uncomplicated; J30.2 Other seasonal allergic rhinitis; Z88.5 Allergy status to narcotic agent; Z79.3 Long term (current) use of hormonal contraceptives; Z79.51 Long term (current) use of inhaled steroids; Z79.899 Other long term (current) drug therapy

== ENCOUNTER → 2020-08-25 | Outpatient (REF) | payer OTHER ==
[~2020-08-25] MED LIST changes: +CIPRODEX OTIC; +DESO1TAB5 PO; +FEXO60CA PO; +PRED20TA PO
== END ==
LOC: M SFHCWAGY 17:19
PROVIDERS: ATTEND Nurse Practitioner Family
DX: Z12.4 Encounter for screening for malignant neoplasm of cervix (principal)

== ENCOUNTER → 2020-08-30 | Outpatient (REF) | payer OTHER ==
[~2020-08-30] MED LIST changes: +CIPR7.5D5 OTIC; -CIPRODEX OTIC
== END ==
LOC: M PLALAB 10:11
PROVIDERS: ATTEND Nurse Practitioner Family
DX: Z11.3 Encounter for screening for infections with a predominantly sexual mode of transmission (principal)

== ENCOUNTER → 2020-08-31 | Outpatient (CLI) | payer OTHER ==
[2020-08-31 17:31] LABS: BASO # 0.1 10^3/uL (0.0-0.2); BASO % 0.7 % (0.0-1.0); EOS # 0.4 10^3/uL (0.0-0.5); EOS % 5.4 % (0.0-3.0); HEMATOCRIT 46.1 % (36.0-47.0); HEMOGLOBIN 15.2 g/dl (12.0-15.5); LYMPH # 2.4 10^3/uL (1.5-5.0); LYMPH % 30.1 % (24.0-44.0); MEAN CORPUSCULAR HEMOGLOBIN 28.6 pg (27.0-33.0); MEAN CORPUSCULAR VOLUME 86.7 fl (80.0-96.0); MONO # 0.5 10^3/uL (0.0-0.8); MONO % 5.5 % (0.0-5.0); NEUTROPHILS # 4.7 10^3/uL (1.5-8.5); NEUTROPHILS % 57.7 % (36.0-66.0); PLATELET COUNT, AUTOMATED 232 10^3/uL (150-450); RED BLOOD COUNT 5.32 10^6/uL (4.00-5.40); WHITE BLOOD COUNT 8.1 10^3/uL (4.0-10.0)
[2020-08-31 17:48] LABS: HEMOGLOBIN A1c 11.3 %
[2020-08-31 18:12] LABS: CREATININE, URINE 52.6 MG/DL; MALB URINE SIEMENS 87.2 MG/L; MAU/CREAT RATIO 165.7 MCG/MG (0.0-30.0)
[2020-08-31 18:30] LABS: ALBUMIN 3.5 GM/DL (3.2-5.2); ALT/SGPT 219 U/L (12-78); BILIRUBIN,TOTAL 0.5 MG/DL (0.2-1.0); BLOOD UREA NITROGEN 10 MG/DL (7-18); CALCIUM LEVEL 9.1 MG/DL (8.5-10.1); CARBON DIOXIDE LEVEL 25 MEQ/L (21-32); CHLORIDE LEVEL 102 MEQ/L (98-107); CHOLESTEROL LEVEL 221 MG/DL (<200); CREATININE FOR GFR 0.96 MG/DL (0.55-1.30); FREE T4 1.03 NG/DL (0.76-1.46); GLOMERULAR FILTRATION RATE > 60.0 (>60); GLUCOSE, FASTING 403 MG/DL (70-100); HDL CHOLESTEROL 25 MG/DL (>40); NON-HDL-C 196 MG/DL; POTASSIUM SERUM 3.8 MEQ/L (3.5-5.1); SODIUM LEVEL 136 MEQ/L (136-145); TOTAL PROTEIN 7.4 GM/DL (6.4-8.2); TRIGLYCERIDES LEVEL 461 MG/DL (<150)
== END ==
LOC: M PLALAB 15:11
PROVIDERS: ATTEND Nurse Practitioner Family
DX: R73.03 Prediabetes (principal); Z11.3 Encounter for screening for infections with a predominantly sexual mode of transmission

== ENCOUNTER 2020-10-28 02:04 | Emergency (ER) | payer OTHER ==
[~2020-10-28] VITALS: Ht 149.9 cm; Wt 78.5 kg
[2020-10-28 02:05] VITALS: BP 135/82
[2020-10-28] MEDS ORDERED: METF500T13 PO (02:13)
--- NOTE | 2020-10-28 02:58 | REPVR ---
PROCEDURE INFORMATION: Exam: CT Cervical Spine Without Contrast Exam date and time: 10/28/2020 2:24 AM Age: 35 years old Clinical indication: Neck pain; Additional info: Head injury TECHNIQUE: Imaging protocol: Computed tomography images of the cervical spine without contrast. Radiation optimization: All CT scans at this facility use at least one of these dose optimization techniques: automated exposure control; mA and/or kV adjustment per patient size (includes targeted exams where dose is matched to clinical indication); or iterative reconstruction. COMPARISON: CT Spine,cervical w/o contrast 09/05/2019 5:46 AM FINDINGS: Bones/joints: Nonspecific straightening. Vertebral body height and AP alignment is preserved. [id number] degenerative change about the dens. Mild prevertebral osteophytosis. No acute cervical spine fracture. Stable sclerotic lesion C5. Discs/Spinal canal/Neural foramina: No definite significant central canal stenosis within limitations of technique. Lungs: Lung apices are normal. Pleural spaces: No visible pneumothorax. Soft tissues: Unremarkable. IMPRESSION: No acute cervical spine fracture. Electronically signed by: Gabriel Simons On 10/28/2020 02:58:26 AM
--- NOTE | 2020-10-28 03:00 | REPVR ---
PROCEDURE INFORMATION: Exam: CT Head Without Contrast Exam date and time: 10/28/2020 2:24 AM Age: 35 years old Clinical indication: Injury or trauma; Fall; Concussion/head injury TECHNIQUE: Imaging protocol: Computed tomography of the head without contrast. Radiation optimization: All CT scans at this facility use at least one of these dose optimization techniques: automated exposure control; mA and/or kV adjustment per patient size (includes targeted exams where dose is matched to clinical indication); or iterative reconstruction. COMPARISON: CT Head without contrast 09/05/2019 5:18 AM FINDINGS: Brain: Normal. No hemorrhage. Unremarkable white matter. No mass effect. Cerebral ventricles: No ventriculomegaly. Bones/joints: Unremarkable. No acute fracture. Paranasal sinuses: Visualized sinuses are unremarkable. No fluid levels. Mastoid air cells: Visualized mastoid air cells are well aerated. Soft tissues: Unremarkable. IMPRESSION: No acute intracranial abnormality. Electronically signed by: Gabriel Simons On 10/28/2020 03:00:36 AM
== END 2020-10-28 03:43 | disposition left against medical advice (07) ==
LOC: M ED 02:04
DX: Z53.21 Procedure and treatment not carried out due to patient leaving prior to being seen by health care provider (principal)

== ENCOUNTER 2020-10-28 03:56 | Emergency (ER) | payer OTHER ==
[~2020-10-28] VITALS: Ht 149.9 cm; Wt 78.0 kg
[2020-10-28 03:57] VITALS: BP 135/84
== END 2020-10-28 05:04 | disposition left against medical advice (07) ==
LOC: M ED 03:56
DX: Z53.21 Procedure and treatment not carried out due to patient leaving prior to being seen by health care provider (principal)

== ENCOUNTER → 2020-12-04 | Outpatient (REF) | payer OTHER ==
[2020-12-04 16:00] LABS: HEMOGLOBIN A1c 7.5 %
[2020-12-04 16:15] LABS: ALBUMIN 3.6 GM/DL (3.2-5.2); ALT/SGPT 97 U/L (12-78); BILIRUBIN,TOTAL 0.7 MG/DL (0.2-1.0); BLOOD UREA NITROGEN 12 MG/DL (7-18); CALCIUM LEVEL 8.9 MG/DL (8.5-10.1); CARBON DIOXIDE LEVEL 29 MEQ/L (21-32); CHLORIDE LEVEL 105 MEQ/L (98-107); CREATININE FOR GFR 0.86 MG/DL (0.55-1.30); GLOMERULAR FILTRATION RATE > 60.0 (>60); GLUCOSE, FASTING 226 MG/DL (70-100); POTASSIUM SERUM 4.2 MEQ/L (3.5-5.1); SODIUM LEVEL 139 MEQ/L (136-145); TOTAL PROTEIN 7.2 GM/DL (6.4-8.2)
== END ==
LOC: M PLALAB 15:04
PROVIDERS: ATTEND Nurse Practitioner Family
DX: E11.65 Type 2 diabetes mellitus with hyperglycemia (principal)

== ENCOUNTER → 2021-03-06 | Outpatient (CLI) | payer OTHER ==
[~2021-03-06] MED LIST changes: +OMEP40CA4 PO; -OMEP40CA97 PO
[2021-03-06 10:58] LABS: HEMOGLOBIN A1c 6.6 %
== END ==
LOC: M PLALAB 07:51
PROVIDERS: ATTEND Nurse Practitioner Family
DX: E11.65 Type 2 diabetes mellitus with hyperglycemia (principal)